=== PATIENT | male | born 1990 | race Caucasian/White ===

== ENCOUNTER 2019-05-08 08:51 | Observation (INO) | payer BC, MEDICAID ==
[2019-05-08] MEDS ORDERED: POLYMYXIN/BACITRACIN 1L IRRIG ×2 (12:14→15:58)
[2019-05-08] MEDS ORDERED: BUPIVACAINE 0.5% (SDV) 30 ML INJ (12:28)
[2019-05-08] MEDS ORDERED: SUCCINYLCHOLINE CHLORIDE 100 MG/5 ML SYG IV (12:28)
[2019-05-08] MEDS ORDERED: ROPIVACAINE 0.5 % 30 ML VIAL (12:28)
[2019-05-08] MEDS ORDERED: GLYCOPYRROLATE 0.4 MG INJ ×3 (12:28→17:34)
[2019-05-08] MEDS ORDERED: LIDOCAINE 2% (SDV) 5 ML INJ (12:28)
[2019-05-08] MEDS ORDERED: ROCURONIUM 50 MG INJ ×2 (12:28→13:25)
[2019-05-08] MEDS ORDERED: NEOSTIGMINE 3 MG/3 ML SYRINGE ×2 (12:28→17:34)
[2019-05-08] MEDS ORDERED: PROPOFOL 20 ML (12:28)
[2019-05-08] MEDS ORDERED: CEFAZOLIN 1 GM INJ ×2 (12:28→16:47)
[2019-05-08] MEDS ORDERED: ATROPINE 1 MG/10 ML SYRINGE (15:04)
[2019-05-08] MEDS ORDERED: OXYCODONE/ACETAMINOPHEN (5/325) TAB PO ×2 (16:00→19:00)
[2019-05-08] MEDS ORDERED: HYDROmorphONE 1 MG/5 ML IV SYRINGE IV (16:00)
[2019-05-08] MEDS ORDERED: EPHEDrine 25 MG/5 ML SYG IV (16:00)
[2019-05-08] MEDS ORDERED: LABETALOL HCL 20MG INJ IV (16:00)
[2019-05-08] MEDS ORDERED: METOCLOPRAMIDE 10 MG INJ IV (16:00)
[2019-05-08] MEDS ORDERED: MIDAZOLAM 1 MG/ML 2 ML INJ IV (16:00)
[2019-05-08] MEDS ORDERED: DIPHENHYDRAMINE 50 MG INJ IV (16:00)
[2019-05-08] MEDS ORDERED: hydrALAzine 20 MG INJ IV (16:00)
[2019-05-08] MEDS ORDERED: FENTAnyl 50 MCG/ML VIAL IV ×2 (16:00)
[2019-05-08] MEDS: NEOMYC/POLYMYX/BACIT 30 GM OINT (17:41)
[2019-05-08] MEDS: ROPIVACAINE 0.5 % 30 ML VIAL (17:41)
[2019-05-08] MEDS: HYDROmorphONE 1 MG/5 ML IV SYRINGE IV ×2 (18:09→18:20)
[2019-05-08] MEDS: FENTAnyl 50 MCG/ML VIAL IV ×2 (18:27→18:37)
[2019-05-08] MEDS: ONDANSETRON 4 MG INJ IV (18:28)
[2019-05-08] MEDS: OXYCODONE/ACETAMINOPHEN (5/325) TAB PO ×2 (18:28→21:47)
[2019-05-08] MEDS: MEPERIDINE 25 MG INJ IV (18:28)
[2019-05-08] MEDS ORDERED: ONDANSETRON 4 MG INJ IV (19:00)
[2019-05-08] MEDS ORDERED: morphine 10 MG INJ IV (19:00)
[2019-05-08] MEDS ORDERED: CEFAZOLIN 1 GM INJ IV (19:00)
[2019-05-08] MEDS ORDERED: DIPHENHYDRAMINE 25 MG CAP PO (19:00)
[2019-05-08] MEDS: GABAPENTIN 300 MG CAP PO (21:45)
[2019-05-08] MEDS: CEFAZOLIN 1 GM/50 ML (PMX) 50 ML IVPB (21:47)
[2019-05-09] MEDS: OXYCODONE/ACETAMINOPHEN (5/325) TAB PO ×5 (01:12→18:42)
[2019-05-09] MEDS: CEFAZOLIN 1 GM/50 ML (PMX) 50 ML IVPB ×2 (05:25→14:11)
[2019-05-09] MEDS: GABAPENTIN 300 MG CAP PO ×2 (09:26→14:12)
[2019-05-09] MEDS: RIVAROXABAN 10 MG TABLET PO (18:41)
== END 2019-05-09 20:00 | disposition home or self-care (01) ==
LOC: SDS 08:51 → REC 18:47 → MS1 19:59
DX: Q66.1 Congenital talipes calcaneovarus (principal); M25.371 Other instability, right ankle; M62.461 Contracture of muscle, right lower leg; M65.871 Other synovitis and tenosynovitis, right ankle and foot
CPT/HCPCS: 27687; 73630; 82306; 97110; 97116; 97162; 99217